=== PATIENT | male | born 1940 | race Caucasian/White ===

== ENCOUNTER 2022-08-05 17:03 | Emergency (ER) | payer MEDICARE, OTHER, SELFPAY ==
--- NOTE | ~2022-08-05 | CT_ITS ---
EXAMINATION: CT ANGIOGRAM HEAD AND NECK CLINICAL INFORMATION: Weakness and confusion COMPARISON: None TECHNIQUE: Test bolus sequences followed by intravenous administration of 70 mL of Omnipaque 350 intravenous contrast. Helical imaging was performed in the axial plane from the mediastinum to the skull vertex. Delayed postcontrast imaging of the head was also performed. The data was processed at the extractions technologist's workstation for generation of MIP sequences. Three-dimensional volume rendered reformatted images were also generated at an offline 3-D workstation. This CT examination was performed using dose optimization techniques as appropriate, variously including the following: *Automated exposure control *Adjustment of mA and/or kV according to patient size (this includes techniques or standardized protocols for targeted exams where dose is matched to indication/reason for exam; i.e. extremities or head) *Use of iterative reconstruction technique DLP: 2185 mGy-cm FINDINGS: HEAD: No intra or extra-axial fluid collection, hemorrhage, or mass. No midline shift or herniation. Basal cisterns are patent. Castillo-white matter differentiation is maintained. No abnormal intracranial enhancement. Major dural venous sinuses enhance normally. Mild cerebral volume loss with prominent sulci and lateral ventricular enlargement. The callosal angle measured 85 degrees. Mild symmetric hypoattenuation the periventricular white matter, nonspecific, likely mild chronic small vessel ischemic change. No calvarial fracture. Mucous retention cyst noted in the right maxillary antrum. Mastoid air cells normally aerated. The paranasal sinuses are well aerated and clear. SOFT TISSUES AND LUNG APICES: Globes and retro-orbital structures are intact. 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 Major salivary glands unremarkable. No mucosal space mass. No retropharyngeal fluid collection/swelling. Normal appearance of the thyroid. Laryngeal structures are unremarkable. No cervical lymphadenopathy. Visualized upper lungs are clear. No acute fracture or suspicious osseous lesion. Grade 1 anterolisthesis at C3-C4 and C4-C5. Advanced degenerative disc disease at C5-C6 and C6-C7. Multilevel facet arthrosis and uncovertebral spurring in the cervical spine. NECK CTA: Normal caliber aortic arch. Normal three-vessel arch configuration. Great vessel origins are patent. Bilateral common carotid arteries widely patent. Bilateral carotid bifurcations widely patent with minimal mixed calcified noncalcified plaque. No significant stenosis. Internal carotid arteries patent bilaterally. Tortuous left ICA proximal to the skull base. Bilateral vertebral arteries patent, left-sided dominant. CRANIAL CTA: Posterior circulation: Intradural segments of the vertebral arteries patent bilaterally. Patent bilateral PICA's and AICA's. The basilar artery is patent. Bilateral superior cerebellar arteries patent. Hypoplastic right P1 posterior cerebral artery segment with filling of the P2 and more distal PUBLICATIONS INSPECTOR branches via patent right posterior communicating artery. Bilateral food broker are patent. Moderate focal luminal narrowing at the junction of the left P2/P3 PUBLICATIONS INSPECTOR segments. No stenosis or aneurysm. Anterior circulation: The petrous ICAs are patent. Minimal vascular calcifications of the cavernous carotid segments without stenosis. Supraclinoid ICAs patent without aneurysm. Patent right posterior communicating artery. The left posterior communicating artery is not definitely seen. Bilateral anterior cerebral and middle cerebral arteries are patent. Patent anterior communicating artery. No aneurysm. No hemodynamically significant stenosis. No vascular malformation identified. CT/CT angio head neck stroke IMPRESSION: 1. No intracranial hemorrhage or other acute intracranial abnormality. 2. Moderate focal luminal narrowing at the left P2/P3 PUBLICATIONS INSPECTOR segment. No other intracranial arterial stenosis. 3. No hemodynamically significant stenosis in the extracranial arterial vasculature. This critical result was discussed with Dr. Mccall at 6:07 PM on 08/05/2022 and it was ascertained that the content and urgency of the report was understood at the time of direct communication.
--- NOTE | 2022-08-05 17:05 | ED.GENADULT ---
HPI - General Adult General Chief complaint: Altered Mental Status <NINO Agneles - Last Filed: 08/05/22 17:09> Stated complaint: weakness,confusion <NINO Angeles - Last Filed: 08/05/22 17:09> Time Seen by Provider: 08/05/22 17:14 <NINO Angeles - Last Filed: 08/05/22 17:09> Source: patient and family ( and son) <NINO Angeles - Last Filed: 08/05/22 17:09> Mode of arrival: wheelchair <NINO Angeles - Last Filed: 08/05/22 17:09> Limitations: no limitations <NINO Angeles - Last Filed: 08/05/22 17:09> History of Present Illness HPI narrative: Patient 82 years old with history of hypertension otherwise healthy went out with his for lunch had a beer at 15:00 while coming home patient was a very confused had difficulty in walking urinated himself in his pants felt very weak no seizures no headache. His speech was slow but moving his all 4 extremities normally no history of substance abuse no fever or chills <Hilton Byrne MD - Last Filed: 08/05/22 23:07> Related Data Allergies/adverse reactions: Allergies Allergy/AdvReac Type Severity Reaction Status Date / Time No Known Allergies Allergy Verified 08/05/22 17:05 <NINO Angeles - Last Filed: 08/05/22 17:09> Review of Systems Review of Systems: Yes all other systems are reviewed and are negative <Hilton Byrne MD - Last Filed: 08/05/22 23:07> [facility] Social History Social History: Social History Alcohol intake: current Alcohol intake frequency: 0-2 drinks per day Smoked in Last 30 Days: No Use of substances other than those prescribed or required for medical reasons: No Advance Directives: Yes Advance Directives Information Provided: No Advance Directives on File: No <NINO Angeles - Last Filed: 08/05/22 17:09> Physical Exam ED Vital Signs: Vital Signs - 24 hr 08/05/22 17:06 08/05/22 18:38 08/05/22 21:22 Temperature 97.3 F 97.8 F 97.6 F Pulse Rate 73 76 78 Respiratory Rate 18 16 16 Blood Pressure 132/81 148/74 H 147/78 H Pulse Oximetry 97 97 Oxygen Delivery Method Room Air Room Air Room Air BMI result Body Mass Index 26.2 <NINO Angeles - Last Filed: 08/05/22 17:09> Vital Signs - 24 hr 08/05/22 17:06 08/05/22 18:38 08/05/22 21:22 Temperature 97.3 F 97.8 F 97.6 F Pulse Rate 73 76 78 Respiratory Rate 18 16 16 Blood Pressure 132/81 148/74 H 147/78 H Pulse Oximetry 97 97 Oxygen Delivery Method Room Air Room Air Room Air BMI result Body Mass Index 26.2 <Hilton Byrne MD - Last Filed: 08/05/22 23:07> Appearance: Alert. Oriented X3. No acute distress. Eyes: PERRLA, No Nystagmus ENT: Pharynx normal. Oral Mucosa moist Neck: Normal inspection. Neck supple. CVS: Normal heart rate and rhythm. Pulses normal. Respiratory: No respiratory distress. Equal air entry bilateral, no wheezing/rales/rhonchi Abdomen: Soft and nontender. Bowel sounds are present, no mass palpable, no CVA tenderness Skin: Skin warm and dry. Normal skin color. Normal skin turgor. Extremities: No lower extremity edema. No calf tenderness Neuro: Oriented X 3. No motor deficit. No sensory deficit.No cerebellar signs , cranial nerves II-XII intact slow speech <Hilton Byrne MD - Last Filed: 08/05/22 23:07> NIH Stroke Scale Internal: Initial- Upon Arrival <Hilton Byrne MD - Last Filed: 08/05/22 23:07> Level of Consciousness: Alert <Hilton Byrne MD - Last Filed: 08/05/22 23:07> Level of Consciousness Questions: Answers both questions correctly <Hilton Byrne MD - Last Filed: 08/05/22 23:07> Level of Consciousness Commands: Performs both tasks correctly <Hilton Byrne MD - Last Filed: 08/05/22 23:07> Best Gaze: Normal <Hilton Byrne MD - Last Filed: 08/05/22 23:07> Visual: No visual loss <Hilton Byrne MD - Last Filed: 08/05/22 23:07> Facial Palsy: Normal <Hilton Byrne MD - Last Filed: 08/05/22 23:07> Motor Arm (Right): No drift <Hilton Byrne MD - Last Filed: 08/05/22 23:07> Motor Arm (Left): No drift <Hilton Byrne MD - Last Filed: 08/05/22 23:07> Motor Leg (Right): No drift <Hilton Byrne MD - Last Filed: 08/05/22 23:07> Motor Leg (Left): No drift <Hilton Byrne MD - Last Filed: 08/05/22 23:07> Limb Ataxia: Absent <Hilton Byrne MD - Last Filed: 08/05/22 23:07> Sensory: Normal <Hilton Byrne MD - Last Filed: 08/05/22 23:07> Best Language: No aphasia <Hilton Byrne MD - Last Filed: 08/05/22 23:07> Dysarthia: Normal <Hilton Byrne MD - Last Filed: 08/05/22 23:07> Extinction and Inattention: No abnormality <Hilton Byrne MD - Last Filed: 08/05/22 23:07> Score: 0 <Hilton Byrne MD - Last Filed: 08/05/22 23:07> Course Course Course Narrative: RME completed by Ruth Zarate PA-C. Patient is an 82 year old male presenting to the emergency department with a chief complaint of confusion. Patient's son and state that the patient has been acting more confused. Last known normal 1530. CT head and labs ordered. <NINO Angeles - Last Filed: 08/05/22 17:09> Medications Administered Discontinued Medications Generic Name Dose Route Start Last Admin Trade Name Freq PRN Reason Stop Dose Admin Sodium Chloride 1,000 mls @ 999 mls/hr 08/05/22 19:34 08/05/22 20:39 Ns IV 08/05/22 20:34 999 mls/hr .Q1H1M ONE Administration Iohexol 100 ml 08/05/22 17:38 08/05/22 17:38 Iohexol 350 Mg/Ml 100 Ml Infus..Btl IV 08/05/22 17:39 70 ml ONCE ONE Administration <NINO Angeles - Last Filed: 08/05/22 17:09> Medications Administered Discontinued Medications Generic Name Dose Route Start Last Admin Trade Name Luis PRN Reason Stop Dose Admin Sodium Chloride 1,000 mls @ 999 mls/hr 08/05/22 19:34 08/05/22 20:39 Ns IV 08/05/22 20:34 999 mls/hr .Q1H1M ONE Administration Iohexol 100 ml 08/05/22 17:38 08/05/22 17:38 Iohexol 350 Mg/Ml 100 Ml Infus..Btl IV 08/05/22 17:39 70 ml ONCE ONE Administration <Hilton Byrne MD - Last Filed: 08/05/22 23:07> Medical Decision Making Medical Decision Making [facility] Narrative: Patient workup negative for CVA lab workup showed elevated alcohol level to 228. Apparently patient had alcohol last mid night and also had beer in the morning likely the cause for elevated alcohol level and unsteady gait. During stay in the ER patient improved able to ambulate in a steady gait family at the bedside will discharge patient home <Hilton Byrne MD - Last Filed: 08/05/22 23:07> Lab Data [facility] Lab Attestation statement: I reviewed the patient's lab results. <Hilton Byrne MD - Last Filed: 08/05/22 23:07> Result Diagrams: : 08/05/22 17:44 08/05/22 17:44 <NINO Angeles - Last Filed: 08/05/22 17:09> Labs: Lab Results 08/05/22 08/05/22 08/05/22 Range/Units 17:44 17:44 17:44 WBC 6.0 (4.8-10.8) X10*3/uL RBC 4.11 L (4.60-5.80) X10*6/uL Hgb 14.8 (14.0-18.0) g/dl Hct 43.1 (42.0-52.0) % MCV 104.9 H (80.0-98.0) fL MCH 36.0 H (27.0-33.0) pg MCHC 34.3 (31.0-36.0) g/dl RDW 12.3 (11.0-16.0) % Plt Count 178 (160-400) X10*3/uL MPV 9.2 L (9.4-12.4) fL Immature Gran % (Auto) 0.3 (0.0-0.4) % Neut % (Auto) 58.9 (45-73) % Lymph % (Auto) 23.7 (20-40) % [place] % (Auto) 14.1 H (2-11) % Eos % (Auto) 2.2 (0-4) % Baso % (Auto) 0.8 (0-2) % Lymph # (Auto) 1.4 (1.2-4.9) X10*3/uL [place] # (Auto) 0.8 (0.1-1.2) X10*3/uL Eos # (Auto) 0.1 (0.0-0.4) X10*3/uL Baso # (Auto) 0.1 (0.0-0.2) X10*3/uL Abs Immat Gran (auto) 0.02 (0.00-0.03) X10*3/uL Absolute Neuts (auto) 3.5 (2.0-8.3) x10*3/uL Absolute Nucleated RBC 0.000 (0.0-0.012) X10*3/uL Nucleated RBC % (auto) 0.0 (0.0-0.2) /100WBC PT (10.0-13.1) SEC INR (0.9-1.1) APTT (26.0-36.4) SEC Sodium 138 (135-145) mmol/L Potassium 4.5 (3.3-5.1) mmol/L Chloride 102 (96-108) mmol/L Carbon Dioxide 28 (22-29) mmol/L Anion Gap 13 (12-20) BUN 11 (9-16) mg/dL Creatinine 0.85 (0.5-1.4) mg/dL Estim Creat Clear Calc 58.2 Estimated GFR > 60 Random Glucose 99 (60-115) mg/dL Calcium 9.1 (8.4-10.2) mg/dL Magnesium 2.0 (1.6-2.6) mg/dL Total Bilirubin 0.6 (0.0-1.0) mg/dL AST 35 (5-37) U/L ALT 43 H (0-40) U/L Alkaline Phosphatase 124 H (39-117) U/L Total Protein 6.8 (6.5-8.0) g/dL Albumin 4.0 (3.5-5.0) g/dL Urine Color Urine Appearance Urine pH (5.0-9.0) Ur Specific [place] (1.005-1.025) Urine Protein (Neg-Trace) mg/dL Urine Glucose (UA) (Negative) mg/dL Urine Ketones (Negative) mg/dL Urine Blood (Negative) Urine Nitrite (Negative) Ur Leukocyte Esterase (Negative) Urine Opiates Screen (Not Detect) Urine Fentanyl Screen (Not Detect) Ur Barbiturates Screen (Not Detect) Ur Phencyclidine Scrn (Not Detect) Ur Amphetamines Screen (Not Detect) U Benzodiazepines Scrn (Not Detect) Urine Cocaine Screen (Not Detect) U Marijuana (THC) Screen (Not Detect) Ethyl Alcohol mg/dL Influenza Type A (PCR) NEGATIVE (Negative) Influenza Type B (PCR) NEGATIVE (Negative) RSV RNA Qual (PCR) NEGATIVE (Negative) SARS-CoV-2 RNA (RT-PCR) NEGATIVE (Negative) 08/05/22 08/05/22 08/05/22 Range/Units 17:44 17:44 19:14 WBC (4.8-10.8) X10*3/uL RBC (4.60-5.80) X10*6/uL Hgb (14.0-18.0) g/dl Hct (42.0-52.0) % MCV (80.0-98.0) fL MCH (27.0-33.0) pg MCHC (31.0-36.0) g/dl RDW (11.0-16.0) % Plt Count (160-400) X10*3/uL MPV (9.4-12.4) fL Immature Gran % (Auto) (0.0-0.4) % Neut % (Auto) (45-73) % Lymph % (Auto) (20-40) % [place] % (Auto) (2-11) % Eos % (Auto) (0-4) % Baso % (Auto) (0-2) % Lymph # (Auto) (1.2-4.9) X10*3/uL [place] # (Auto) (0.1-1.2) X10*3/uL Eos # (Auto) (0.0-0.4) X10*3/uL Baso # (Auto) (0.0-0.2) X10*3/uL Abs Immat Gran (auto) (0.00-0.03) X10*3/uL Absolute Neuts (auto) (2.0-8.3) x10*3/uL Absolute Nucleated RBC (0.0-0.012) X10*3/uL Nucleated RBC % (auto) (0.0-0.2) /100WBC PT 11.7 (10.0-13.1) SEC INR 1.0 (0.9-1.1) APTT 31.9 (26.0-36.4) SEC Sodium (135-145) mmol/L Potassium (3.3-5.1) mmol/L Chloride (96-108) mmol/L Carbon Dioxide (22-29) mmol/L Anion Gap (12-20) BUN (9-16) mg/dL Creatinine (0.5-1.4) mg/dL Estim Creat Clear Calc Estimated GFR Random Glucose (60-115) mg/dL Calcium (8.4-10.2) mg/dL Magnesium (1.6-2.6) mg/dL Total Bilirubin (0.0-1.0) mg/dL AST (5-37) U/L ALT (0-40) U/L Alkaline Phosphatase (39-117) U/L Total Protein (6.5-8.0) g/dL Albumin (3.5-5.0) g/dL Urine Color Urine Appearance Urine pH (5.0-9.0) Ur Specific [place] (1.005-1.025) Urine Protein (Neg-Trace) mg/dL Urine Glucose (UA) (Negative) mg/dL Urine Ketones (Negative) mg/dL Urine Blood (Negative) Urine Nitrite (Negative) Ur Leukocyte Esterase (Negative) Urine Opiates Screen Not Detected (Not Detect) Urine Fentanyl Screen Not Detected (Not Detect) Ur Barbiturates Screen Not Detected (Not Detect) Ur Phencyclidine Scrn Not Detected (Not Detect) Ur Amphetamines Screen Not Detected (Not Detect) U Benzodiazepines Scrn Not Detected (Not Detect) Urine Cocaine Screen Not Detected (Not Detect) U Marijuana (THC) Screen Not Detected (Not Detect) Ethyl Alcohol 228 mg/dL Influenza Type A (PCR) (Negative) Influenza Type B (PCR) (Negative) RSV RNA Qual (PCR) (Negative) SARS-CoV-2 RNA (RT-PCR) (Negative) 08/05/22 Range/Units 19:14 WBC (4.8-10.8) X10*3/uL RBC (4.60-5.80) X10*6/uL Hgb (14.0-18.0) g/dl Hct (42.0-52.0) % MCV (80.0-98.0) fL MCH (27.0-33.0) pg MCHC (31.0-36.0) g/dl RDW (11.0-16.0) % Plt Count (160-400) X10*3/uL MPV (9.4-12.4) fL Immature Gran % (Auto) (0.0-0.4) % Neut % (Auto) (45-73) % Lymph % (Auto) (20-40) % [place] % (Auto) (2-11) % Eos % (Auto) (0-4) % Baso % (Auto) (0-2) % Lymph # (Auto) (1.2-4.9) X10*3/uL [place] # (Auto) (0.1-1.2) X10*3/uL Eos # (Auto) (0.0-0.4) X10*3/uL Baso # (Auto) (0.0-0.2) X10*3/uL Abs Immat Gran (auto) (0.00-0.03) X10*3/uL Absolute Neuts (auto) (2.0-8.3) x10*3/uL Absolute Nucleated RBC (0.0-0.012) X10*3/uL Nucleated RBC % (auto) (0.0-0.2) /100WBC PT (10.0-13.1) SEC INR (0.9-1.1) APTT (26.0-36.4) SEC Sodium (135-145) mmol/L Potassium (3.3-5.1) mmol/L Chloride (96-108) mmol/L Carbon Dioxide (22-29) mmol/L Anion Gap (12-20) BUN (9-16) mg/dL Creatinine (0.5-1.4) mg/dL Estim Creat Clear Calc Estimated GFR Random Glucose (60-115) mg/dL Calcium (8.4-10.2) mg/dL Magnesium (1.6-2.6) mg/dL Total Bilirubin (0.0-1.0) mg/dL AST (5-37) U/L ALT (0-40) U/L Alkaline Phosphatase (39-117) U/L Total Protein (6.5-8.0) g/dL Albumin (3.5-5.0) g/dL Urine Color Yellow Urine Appearance Clear Urine pH 5.5 (5.0-9.0) Ur Specific [place] 1.010 (1.005-1.025) Urine Protein Negative (Neg-Trace) mg/dL Urine Glucose (UA) Negative (Negative) mg/dL Urine Ketones Negative (Negative) mg/dL Urine Blood Negative (Negative) Urine Nitrite Negative (Negative) Ur Leukocyte Esterase Negative (Negative) Urine Opiates Screen (Not Detect) Urine Fentanyl Screen (Not Detect) Ur Barbiturates Screen (Not Detect) Ur Phencyclidine Scrn (Not Detect) Ur Amphetamines Screen (Not Detect) U Benzodiazepines Scrn (Not Detect) Urine Cocaine Screen (Not Detect) U Marijuana (THC) Screen (Not Detect) Ethyl Alcohol mg/dL Influenza Type A (PCR) (Negative) Influenza Type B (PCR) (Negative) RSV RNA Qual (PCR) (Negative) SARS-CoV-2 RNA (RT-PCR) (Negative) <NINO Angeles - Last Filed: 08/05/22 17:09> Lab Results 08/05/22 08/05/22 08/05/22 Range/Units 17:44 17:44 17:44 WBC 6.0 (4.8-10.8) X10*3/uL RBC 4.11 L (4.60-5.80) X10*6/uL Hgb 14.8 (14.0-18.0) g/dl Hct 43.1 (42.0-52.0) % MCV 104.9 H (80.0-98.0) fL MCH 36.0 H (27.0-33.0) pg MCHC 34.3 (31.0-36.0) g/dl RDW 12.3 (11.0-16.0) % Plt Count 178 (160-400) X10*3/uL MPV 9.2 L (9.4-12.4) fL Immature Gran % (Auto) 0.3 (0.0-0.4) % Neut % (Auto) 58.9 (45-73) % Lymph % (Auto) 23.7 (20-40) % [place] % (Auto) 14.1 H (2-11) % Eos % (Auto) 2.2 (0-4) % Baso % (Auto) 0.8 (0-2) % Lymph # (Auto) 1.4 (1.2-4.9) X10*3/uL [place] # (Auto) 0.8 (0.1-1.2) X10*3/uL Eos # (Auto) 0.1 (0.0-0.4) X10*3/uL Baso # (Auto) 0.1 (0.0-0.2) X10*3/uL Abs Immat Gran (auto) 0.02 (0.00-0.03) X10*3/uL Absolute Neuts (auto) 3.5 (2.0-8.3) x10*3/uL Absolute Nucleated RBC 0.000 (0.0-0.012) X10*3/uL Nucleated RBC % (auto) 0.0 (0.0-0.2) /100WBC PT (10.0-13.1) SEC INR (0.9-1.1) APTT (26.0-36.4) SEC Sodium 138 (135-145) mmol/L Potassium 4.5 (3.3-5.1) mmol/L Chloride 102 (96-108) mmol/L Carbon Dioxide 28 (22-29) mmol/L Anion Gap 13 (12-20) BUN 11 (9-16) mg/dL Creatinine 0.85 (0.5-1.4) mg/dL Estim Creat Clear Calc 58.2 Estimated GFR > 60 Random Glucose 99 (60-115) mg/dL Calcium 9.1 (8.4-10.2) mg/dL Magnesium 2.0 (1.6-2.6) mg/dL Total Bilirubin 0.6 (0.0-1.0) mg/dL AST 35 (5-37) U/L ALT 43 H (0-40) U/L Alkaline Phosphatase 124 H (39-117) U/L Total Protein 6.8 (6.5-8.0) g/dL Albumin 4.0 (3.5-5.0) g/dL Urine Color Urine Appearance Urine pH (5.0-9.0) Ur Specific [place] (1.005-1.025) Urine Protein (Neg-Trace) mg/dL Urine Glucose (UA) (Negative) mg/dL Urine Ketones (Negative) mg/dL Urine Blood (Negative) Urine Nitrite (Negative) Ur Leukocyte Esterase (Negative) Urine Opiates Screen (Not Detect) Urine Fentanyl Screen (Not Detect) Ur Barbiturates Screen (Not Detect) Ur Phencyclidine Scrn (Not Detect) Ur Amphetamines Screen (Not Detect) U Benzodiazepines Scrn (Not Detect) Urine Cocaine Screen (Not Detect) U Marijuana (THC) Screen (Not Detect) Ethyl Alcohol mg/dL Influenza Type A (PCR) NEGATIVE (Negative) Influenza Type B (PCR) NEGATIVE (Negative) RSV RNA Qual (PCR) NEGATIVE (Negative) SARS-CoV-2 RNA (RT-PCR) NEGATIVE (Negative) 08/05/22 08/05/22 08/05/22 Range/Units 17:44 17:44 19:14 WBC (4.8-10.8) X10*3/uL RBC (4.60-5.80) X10*6/uL Hgb (14.0-18.0) g/dl Hct (42.0-52.0) % MCV (80.0-98.0) fL MCH (27.0-33.0) pg MCHC (31.0-36.0) g/dl RDW (11.0-16.0) % Plt Count (160-400) X10*3/uL MPV (9.4-12.4) fL Immature Gran % (Auto) (0.0-0.4) % Neut % (Auto) (45-73) % Lymph % (Auto) (20-40) % [place] % (Auto) (2-11) % Eos % (Auto) (0-4) % Baso % (Auto) (0-2) % Lymph # (Auto) (1.2-4.9) X10*3/uL [place] # (Auto) (0.1-1.2) X10*3/uL Eos # (Auto) (0.0-0.4) X10*3/uL Baso # (Auto) (0.0-0.2) X10*3/uL Abs Immat Gran (auto) (0.00-0.03) X10*3/uL Absolute Neuts (auto) (2.0-8.3) x10*3/uL Absolute Nucleated RBC (0.0-0.012) X10*3/uL Nucleated RBC % (auto) (0.0-0.2) /100WBC PT 11.7 (10.0-13.1) SEC INR 1.0 (0.9-1.1) APTT 31.9 (26.0-36.4) SEC Sodium (135-145) mmol/L Potassium (3.3-5.1) mmol/L Chloride (96-108) mmol/L Carbon Dioxide (22-29) mmol/L Anion Gap (12-20) BUN (9-16) mg/dL Creatinine (0.5-1.4) mg/dL Estim Creat Clear Calc Estimated GFR Random Glucose (60-115) mg/dL Calcium (8.4-10.2) mg/dL Magnesium (1.6-2.6) mg/dL Total Bilirubin (0.0-1.0) mg/dL AST (5-37) U/L ALT (0-40) U/L Alkaline Phosphatase (39-117) U/L Total Protein (6.5-8.0) g/dL Albumin (3.5-5.0) g/dL Urine Color Urine Appearance Urine pH (5.0-9.0) Ur Specific [place] (1.005-1.025) Urine Protein (Neg-Trace) mg/dL Urine Glucose (UA) (Negative) mg/dL Urine Ketones (Negative) mg/dL Urine Blood (Negative) Urine Nitrite (Negative) Ur Leukocyte Esterase (Negative) Urine Opiates Screen Not Detected (Not Detect) Urine Fentanyl Screen Not Detected (Not Detect) Ur Barbiturates Screen Not Detected (Not Detect) Ur Phencyclidine Scrn Not Detected (Not Detect) Ur Amphetamines Screen Not Detected (Not Detect) U Benzodiazepines Scrn Not Detected (Not Detect) Urine Cocaine Screen Not Detected (Not Detect) U Marijuana (THC) Screen Not Detected (Not Detect) Ethyl Alcohol 228 mg/dL Influenza Type A (PCR) (Negative) Influenza Type B (PCR) (Negative) RSV RNA Qual (PCR) (Negative) SARS-CoV-2 RNA (RT-PCR) (Negative) 08/05/22 Range/Units 19:14 WBC (4.8-10.8) X10*3/uL RBC (4.60-5.80) X10*6/uL Hgb (14.0-18.0) g/dl Hct (42.0-52.0) % MCV (80.0-98.0) fL MCH (27.0-33.0) pg MCHC (31.0-36.0) g/dl RDW (11.0-16.0) % Plt Count (160-400) X10*3/uL MPV (9.4-12.4) fL Immature Gran % (Auto) (0.0-0.4) % Neut % (Auto) (45-73) % Lymph % (Auto) (20-40) % [place] % (Auto) (2-11) % Eos % (Auto) (0-4) % Baso % (Auto) (0-2) % Lymph # (Auto) (1.2-4.9) X10*3/uL [place] # (Auto) (0.1-1.2) X10*3/uL Eos # (Auto) (0.0-0.4) X10*3/uL Baso # (Auto) (0.0-0.2) X10*3/uL Abs Immat Gran (auto) (0.00-0.03) X10*3/uL Absolute Neuts (auto) (2.0-8.3) x10*3/uL Absolute Nucleated RBC (0.0-0.012) X10*3/uL Nucleated RBC % (auto) (0.0-0.2) /100WBC PT (10.0-13.1) SEC INR (0.9-1.1) APTT (26.0-36.4) SEC Sodium (135-145) mmol/L Potassium (3.3-5.1) mmol/L Chloride (96-108) mmol/L Carbon Dioxide (22-29) mmol/L Anion Gap (12-20) BUN (9-16) mg/dL Creatinine (0.5-1.4) mg/dL Estim Creat Clear Calc Estimated GFR Random Glucose (60-115) mg/dL Calcium (8.4-10.2) mg/dL Magnesium (1.6-2.6) mg/dL Total Bilirubin (0.0-1.0) mg/dL AST (5-37) U/L ALT (0-40) U/L Alkaline Phosphatase (39-117) U/L Total Protein (6.5-8.0) g/dL Albumin (3.5-5.0) g/dL Urine Color Yellow Urine Appearance Clear Urine pH 5.5 (5.0-9.0) Ur Specific [place] 1.010 (1.005-1.025) Urine Protein Negative (Neg-Trace) mg/dL Urine Glucose (UA) Negative (Negative) mg/dL Urine Ketones Negative (Negative) mg/dL Urine Blood Negative (Negative) Urine Nitrite Negative (Negative) Ur Leukocyte Esterase Negative (Negative) Urine Opiates Screen (Not Detect) Urine Fentanyl Screen (Not Detect) Ur Barbiturates Screen (Not Detect) Ur Phencyclidine Scrn (Not Detect) Ur Amphetamines Screen (Not Detect) U Benzodiazepines Scrn (Not Detect) Urine Cocaine Screen (Not Detect) U Marijuana (THC) Screen (Not Detect) Ethyl Alcohol mg/dL Influenza Type A (PCR) (Negative) Influenza Type B (PCR) (Negative) RSV RNA Qual (PCR) (Negative) SARS-CoV-2 RNA (RT-PCR) (Negative) <Hilton Byrne MD - Last Filed: 08/05/22 23:07> Independent Interpretation I performed an independent interpretation of an: EKG <Hilton Byrne MD - Last Filed: 08/05/22 23:07> Interpretation: Normal sinus rhythm heart rate 74 beats per minute left axis deviation, LVH, no acute ST T wave changes no acute ischemic <Hilton Byrne MD - Last Filed: 08/05/22 23:07> Discharge Plan Discharge Clinical Impression: Alcohol intoxication <NINO Angeles - Last Filed: 08/05/22 17:09> Patient Disposition: Home, Self-Care <NINO Angeles - Last Filed: 08/05/22 17:09> Instructions: Alcohol Intoxication (ED) <NINO Angeles - Last Filed: 08/05/22 17:09> Additional Instructions: Care and caution as advised Try to limit alcohol intake Follow-up with PCP if any concerns <NINO Angeles - Last Filed: 08/05/22 17:09> Interventions: ED Discharge Assessment Last Done: 08/05/22 22:21 <NINO Angeles - Last Filed: 08/05/22 17:09> Discharge Date/Time: 08/05/22 22:22 <NINO Angeles - Last Filed: 08/05/22 17:09>
[2022-08-05 17:06] VITALS: BP 132/81; PULSE 73; RESP 18; TEMP 36.3; O2SAT 97; BMI 24.1
[2022-08-05 17:36] VITALS: BMI 26.2
[2022-08-05] MEDS: iohexoL 350 MG/ML 100 ML INFUS..BTL IV (17:38)
[2022-08-05 17:50] LABS: MANUAL DIFF FLAG NO
[2022-08-05 17:57] LABS: Prothrombin Time 11.7 SEC (10.0-13.1)
[2022-08-05 17:59] LABS: Partial Thromboplastin Time 31.9 SEC (26.0-36.4)
[2022-08-05 18:01] LABS: Ethanol 228 mg/dL
[2022-08-05 18:04] LABS: Alanine Aminotransferase 43 U/L (0-40); Alkaline Phosphatase 124 U/L (39-117); Anion Gap 13 (12-20); Aspartate Amino Transferase 35 U/L (5-37); Bilirubin Total 0.6 mg/dL (0.0-1.0); Blood Urea Nitrogen 11 mg/dL (9-16); Calcium 9.1 mg/dL (8.4-10.2); Carbon Dioxide 28 mmol/L (22-29); Chloride 102 mmol/L (96-108); Creatinine Clr Calc Pharmacy 58.2; Estimated Glomerular Filt Rate > 60; Glucose Random 99 mg/dL (60-115); Potassium 4.5 mmol/L (3.3-5.1); Sodium 138 mmol/L (135-145); Total Protein 6.8 g/dL (6.5-8.0)
--- NOTE | 2022-08-05 18:11 | ECG_ITS ---
Test Reason : AMS Blood Pressure : / mmHG Vent. Rate : 074 BPM Atrial Rate : 074 BPM P-R Int : 160 ms QRS Dur : 076 ms QT Int : 376 ms P-R-T Axes : 012 -30 -10 degrees QTc Int : 417 ms Normal sinus rhythm Left axis deviation Minimal voltage criteria for LVH, may be normal variant ( R in aVL ) Cannot rule out Anterior infarct , age undetermined Abnormal ECG No previous ECGs available Referred By: Hilton Byrne Electronically Signed By:JOHAN GOULD MD
[2022-08-05 18:20] LABS: Basophils Absolute Auto 0.1 X10*3/uL (0.0-0.2); Basophils Percent Auto 0.8 % (0-2); Eosinophils Absolute Auto 0.1 X10*3/uL (0.0-0.4); Eosinophils Percent Auto 2.2 % (0-4); Hematocrit 43.1 % (42.0-52.0); Hemoglobin 14.8 g/dl (14.0-18.0); Imm Gran Abs Auto 0.02 X10*3/uL (0.00-0.03); Imm Gran Pct Auto 0.3 % (0.0-0.4); Lymphocytes Absolute Auto 1.4 X10*3/uL (1.2-4.9); Lymphocytes Percent Auto 23.7 % (20-40); Mean Corpuscular HGB Conc 34.3 g/dl (31.0-36.0); Mean Corpuscular Volume 104.9 fL (80.0-98.0); Mean Platelet Volume 9.2 fL (9.4-12.4); Monocytes Absolute Auto 0.8 X10*3/uL (0.1-1.2); Monocytes Percent Auto 14.1 % (2-11); Neutrophils Absolute Auto 3.5 x10*3/uL (2.0-8.3); Neutrophils Percent Auto 58.9 % (45-73); Platelet Count 178 X10*3/uL (160-400); Red Blood Count 4.11 X10*6/uL (4.60-5.80); Red Cell Distribution Width 12.3 % (11.0-16.0)
[2022-08-05 18:38] VITALS: BP 148/74; PULSE 76; RESP 16; TEMP 36.6
[2022-08-05 18:45] LABS: Influenza A PCR NEGATIVE (Negative); Influenza B PCR NEGATIVE (Negative); Resp Syncy Virus RNA Qual PCR NEGATIVE (Negative); SARS COV2 PCR INHOUSE NEGATIVE (Negative)
[2022-08-05 19:26] LABS: Appearance Urine Clear; Color Urine Yellow; Glucose Urine UA Negative (Negative); Leukocyte Esterase Urine Negative (Negative); Nitrite Urine Negative (Negative); PH 5.5 (5.0-9.0); Urine Blood Negative (Negative); Urine Ketones Negative (Negative); Urine Protein Negative (Neg-Trace)
[2022-08-05 19:34] LABS: Amphetamine Screen Urine Not Detected (Not Detect); Barbiturates, Urine Not Detected (Not Detect); Benzodiazepines Screen Urine Not Detected (Not Detect); Cannabinoid Screen Urine Not Detected (Not Detect); Cocaine Screen Urine Not Detected (Not Detect); Fentanyl, urine Not Detected (Not Detect); Opiate Screen Urine Not Detected (Not Detect); Phencyclidine Screen Urine Not Detected (Not Detect)
[2022-08-05] MEDS: 0.9 % Sodium Chloride 1,000 ML 999 ML IV (20:39)
[2022-08-05 21:22] VITALS: BP 147/78; PULSE 78; RESP 16; TEMP 36.4; O2SAT 97
--- NOTE | 2022-08-05 21:42 | MHC.EDTECH ---
pt went for a long walk around the ed department ,pt had steady gait was able to sit on a chair and get up by himself ,provider aware .
== END 2022-08-05 22:22 | disposition home or self-care (01) ==
PROVIDERS: Physician Assistant Medical; Emergency Provider Internal Medicine; PCP Psychiatry & Neurology Psychiatry
DX: F10.129 Alcohol abuse with intoxication, unspecified (principal); Y90.7 Blood alcohol level of 200-239 mg/100 ml; M54.2 Cervicalgia; R51.9 Headache, unspecified; R41.82 Altered mental status, unspecified; R53.1 Weakness; Z20.822 Contact with and (suspected) exposure to COVID-19; Z79.899 Other long term (current) drug therapy
CPT/HCPCS: 0241U; 36415; 70496; 70498; 80053; 80307; 81003; 82077; 83735; 85025; 85610; 85730; 93005; 99285; Q9967